=== PATIENT | male | born 1940 | race Caucasian/White ===

== ENCOUNTER 2020-09-27 11:17 | Emergency (ER) | payer MEDICARE, SELFPAY ==
--- NOTE | ~2020-09-27 | XR_ITS ---
XR finger 2nd LT min 2V 09/27/2020 11:43 INDICATION: Left second finger laceration with pain PROCEDURE: 4 views left second finger COMPARISON: No prior studies for comparison. FINDINGS: Fracture, dislocation or subluxation is not identified. 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 Mild soft tissue swelling. No foreign bodies are identified. IMPRESSION: 1: NO ACUTE BONE OR JOINT ABNORMALITY IDENTIFIED. Reviewed, dictated and finalized at location A.
[2020-09-27 11:26] VITALS: BP 153/75; PULSE 66; RESP 12; TEMP 36.7; O2SAT 99
--- NOTE | 2020-09-27 11:42 | ED.WOUNDLAC ---
HPI - Wound/Laceration General Chief Complaint: Wound/Laceration Stated Complaint: FINGER LACERATION Source: patient Mode of arrival: ambulatory Limitations: no limitations History of Present Illness HPI narrative: 80-year-old male presents to urgent care with months of laceration to his left index finger which occurred prior to arrival. Patient reports that he was using a saw when he sustained a smashing injury. Patient is unsure of his last tetanus shot. Patient denies decreased range of motion, fever, bodies, chills, nausea, vomiting or diarrhea. Onset (ago): minute(s) (30) Location: other (left index finger) Place: home Patient tetanus UTD: No Context: accidental Associated symptoms: none Related Data Allergies Allergy/AdvReac Type Severity Reaction Status Date / Time clindamycin Allergy Unknown Unknown Verified 09/27/20 11:24 Review of Systems Constitutional: Constitutional: Denies chills, Denies fatigue, Denies fever(s) and Denies weakness Cardiovascular: Cardiovascular: Denies chest pain, Denies rapid heart rate, Denies radiating jaw, neck or arm pain and Denies slow heart rate Respiratory: Respiratory: Denies chest congestion, Denies cough, Denies dyspnea and Denies wheezing Gastrointestinal: Gastrointestinal: Denies abdominal pain, Denies nausea and Denies vomiting Integumentary/Breasts: Comments: laceration to left index finger Neurologic: Denies vertigo, Denies dizziness and Denies syncope PMFSH Family History Family History (Updated 09/27/20 @ 11:44 by Sejal West APRN) Mother No problems noted. Other Diabetes mellitus Social History Social History Smoking status: Never smoker Alcohol intake: current Comments At time of signature, I agree with nursing past medical, surgical, social and family history. There is no relevant family history pertinent to the presenting complaint. Exam Const: General: no acute distress and alert Nutritional Appearance: well nourished Orientation/consciousness: patient oriented x3 Neck: Neck: normal visual inspection Resp: Effort & Inspection: normal respiratory effort, not labored, not tachypneic and no use of accessory muscles Auscultation: clear to auscultation bilaterally and no wheezes Cardio: Rate: regular rate, not bradycardic and not tachycardic Rhythm: regular rhythm Heart sounds: no murmurs Skin: General skin exam: normal color Other: 2.5 cm gaping laceration noted to middle phalanx of left index finger. There is scant amount of active bleeding. There is no purulent drainage, decreased range of motion or streaking erythema noted Neuro: General: patient oriented x3 and moves all extremities Speech: normal speech Extrem: General: clubbing, cyanosis or edema noted and pedal edema present Other: Full range of motion noted; 2.5 cm gaping laceration noted to left index finger Psych: Appearance: grossly normal Mental Status: mental status grossly normal Affect: normal affect Attitude: cooperative Thought content: Yes Normal thought content present Course Vital Signs Vital signs: Vital Signs Temperature 36.7 C 09/27/20 11:26 Pulse Rate 66 09/27/20 11:26 Respiratory Rate 12 09/27/20 11:26 Blood Pressure 153/75 H 09/27/20 11:26 Pulse Oximetry 99 09/27/20 11:26 Temperature 36.7 C 09/27/20 11:26 Pulse Rate 66 09/27/20 11:26 Respiratory Rate 12 09/27/20 11:26 Blood Pressure 153/75 H 09/27/20 11:26 Pulse Oximetry 99 09/27/20 11:26 Procedures Laceration Laceration 1: Date: 09/27/20 Time: 12:22 Site: other (left index finger -- middle phalax) Description: linear Local Anesthetic: lidocaine 1% Pre-repair: wound explored and irrigated ====== Skin Level ====== Skin layer closed with: nylon Size (cm): 5-0 Number of sutures: 9 Technique: simple, interrupted ====== Subcut
[2020-09-27] MEDS: LIDOCAINE HCL 1% LOCAL INJ 20 ML VIAL 3 ML INFILTRATE (12:00)
[2020-09-27] MEDS: TETANUS/DIPHTHERIA TOXOIDS ADSORB 0.5 ML VIAL (*BKC) IM (12:03)
== END 2020-09-27 12:45 | disposition home or self-care (01) ==
PROVIDERS: Emergency Provider Nurse Practitioner Family; PCP Family Medicine Adolescent Medicine
DX: S61.211A Laceration without foreign body of left index finger without damage to nail, initial encounter (principal); X58.XXXA Exposure to other specified factors, initial encounter; Z23 Encounter for immunization
CPT/HCPCS: 12001; 73140; 90471; 90714; 99203; G0463

== ENCOUNTER 2022-07-28 08:59 | Emergency (ER) | payer MEDICARE, SELFPAY ==
[2022-07-28 09:12] VITALS: BP 136/80; PULSE 79; RESP 16; TEMP 36.5; O2SAT 99
--- NOTE | 2022-07-28 09:28 | ED.GENADULT ---
HPI - General Adult General Chief complaint: Extremity Injury, Lower Stated complaint: INJURED R KNEE Time Seen by Provider: 07/28/22 09:25 Source: patient Mode of arrival: ambulatory Limitations: no limitations History of Present Illness HPI narrative: Patient is an 82-year-old male that presents after twisting the knee yesterday. Patient states he was walking and stepped in a hole with left foot twisting around and landing on his butt. Reports pain and swelling to right knee, but is able to ambulate unassisted. Related Data Home Medications Medication Instructions Recorded Confirmed No Home Medications 07/28/22 07/28/22 Allergies Allergy/AdvReac Type Severity Reaction Status Date / Time clindamycin Allergy Unknown Unknown Verified 07/28/22 09:35 Review of Systems Review of Systems: All systems reviewed & are unremarkable except as noted in HPI and below Constitutional: Constitutional: Denies body ache(s), Denies fever(s), Denies headache(s), Denies malaise and Denies weakness Eyes: Eyes: Denies loss of vision ENT: Denies otalgia, Denies headache(s), Denies nasal discharge, Denies sinus pain and Denies sore throat Cardiovascular: Cardiovascular: Denies chest pain, Denies irregular heart rhythm and Denies dyspnea Respiratory: Respiratory: Denies dyspnea Gastrointestinal: Gastrointestinal: Denies abdominal pain, Denies melena, Denies hematochezia, Denies diarrhea, Denies nausea and Denies vomiting Musculoskeletal: Musculoskeletal: Denies back pain, Denies myalgias, Reports arthralgias and Reports joint swelling Integumentary/Breasts: Skin/Breast: Denies pruritus and Denies rash Neurologic: Denies headache(s), Denies loss of vision and Denies weakness Psychiatric: Psychiatric: Reports no additional psychiatric complaints PMFSH Family History Family History (Updated 09/27/20 @ 11:44 by Sejal West APRN) Mother No problems noted. Other Diabetes mellitus Social History Social History Smoking status: Never smoker Alcohol intake: current Comments At time of signature, agree with nursing past medical, surgical, social and family history. There is no relevant family history pertinent to the presenting complaint. Exam Const: General: cooperative, healthy appearing, comfortable, no acute distress and well nourished Nutritional Appearance: well nourished Orientation/consciousness: patient oriented x3 Limitations: no limitations HENMT: Head: normal to inspection, normocephalic and atraumatic Ears: external ears normal Face/Nose/Sinus: Normal external nose present, normal facial exam and face symmetric Face and sinus: normal facial exam and face symmetric Mouth: Yes lip normal Eyes: General: appearance normal, both eyes and all related structures Alignment and Position: alignment normal and position normal Periorbital: periorbital findings normal Eyelids: eyelids normal Pupils: Equal, round and reactive pupils present Neck: Neck: normal visual inspection and full ROM Chest: Chest palpation & inspection: normal inspection of the chest Resp: Effort & Inspection: normal respiratory effort and able to speak in complete sentences Auscultation: clear to auscultation bilaterally Cardio: Rate: regular rate Rhythm: regular rhythm Heart sounds: S1 normal heart sound present and S2 normal heart sound present GI: Inspection: normal to inspection Skin: General skin exam: normal color and no rashes or lesions noted Neuro: General: patient oriented x3 and moves all extremities Cranial nerves: Yes Equal, round and reactive pupils present Speech: normal speech Gait exam (Neuro): Normal gait present Extrem: General: normal to inspection and full ROM Right lower extremity: knee Details: swelling Location: of the patella, normal ROM, knee ligament exam normal Details: anterior drawer test normal, posterior drawer test normal, valgus stre
== END 2022-07-28 09:45 | disposition home or self-care (01) ==
PROVIDERS: Emergency Provider Nurse Practitioner Family; PCP Family Medicine Adolescent Medicine
DX: S83.91XA Sprain of unspecified site of right knee, initial encounter (principal); X50.0XXA Overexertion from strenuous movement or load, initial encounter
CPT/HCPCS: 99212; G0463

== ENCOUNTER 2023-10-11 11:05 | Emergency (ER) | payer MEDICARE, SELFPAY ==
[2023-10-11 11:11] VITALS: BP 136/82; PULSE 67; RESP 16; TEMP 36.9; O2SAT 95
--- NOTE | 2023-10-11 11:31 | ED.EXTPRO ---
HPI - Extremity Problem General Chief complaint: Extremity Problem,Nontraumatic Stated complaint: L HAND SWELLING Time Seen by Provider: 10/11/23 11:25 Source: patient, RN notes reviewed and old records reviewed Mode of arrival: ambulatory Limitations: no limitations History of Present Illness HPI Narrative: 83 year old male presents to [facility] care with complaint of redness and swelling to the dorsal aspect of his left hand with some redness along MCP joint areas fingers 2-5. Patient reports that he felt himself get stung or bit by something along the 2nd left finger at MCP joint at 1100 today while at [employer] with small red tissue area noted. Patient is able to move hand and fingers on own power with inability to fully close into fist due to swelling.Patient is not having any difficulty with his breathing or with swallowing. MD Complaint: extremity swelling and other (redness) Onset (ago): hour(s) (1100 today) Location: left and other (dorsal hand) Severity scale (1-10): 5 Quality: aching and other (itching and soreness) Related Data Home Medications Medication Instructions Recorded Confirmed acetaminophen 500 mg capsule 500 mg PO Q6H PRN 08/30/23 Allergies Allergy/AdvReac Type Severity Reaction Status Date / Time clindamycin Allergy Unknown Unknown Verified 10/11/23 11:09 Review of Systems Review of Systems: CONSTITUTIONAL: Denies fever, chills, or sweats. EYES: Denies visual changes, redness, or discharge. ENT: Denies rhinorrhea, congestion, sore throat, or otalgia. CARDIOVASCULAR: Denies chest pain, palpitations, or edema. RESPIRATORY: Denies cough or dyspnea. GASTROINTESTINAL: Denies abdominal pain, nausea, vomiting, or diarrhea. GENITOURINARY: Denies dysuria or hematuria. SKIN positive for redness and swelling to the dorsal aspect of his left hand with some redness along MCP joint areas. MUSCULOSKELETAL: Denies back pain, joint pain, or myalgia. NEUROLOGIC: Denies headache, numbness, or weakness. PSYCHIATRIC: Denies anxiety or depression. All systems reviewed & are unremarkable except as noted in HPI and below PMFSH Past Medical History Medical History Sprain of left wrist Family History Family History Mother No problems noted. Other Diabetes mellitus Social History Social History Smoking status: Never smoker Alcohol intake: current Comments At time of signature, agree with nursing past medical, surgical, social and family history. There is no relevant family history pertinent to the presenting complaint Exam Narrative: GENERAL: Well-appearing, well-nourished, and in no acute distress. HEAD: Normocephalic, atraumatic. EYES: PERRLA and EOMI. ENT: Nares clear, no rhinorrhea or epistaxis. Mucous membranes moist. NECK: Supple. no lymphadenopathy CHEST: Clear to auscultation. No respiratory distress. SAO2 95% on room air HEART: Regular rate and rhythm. No murmur heard. Normal peripheral pulses. ABDOMEN: Soft, nontender, nondistended, normal active bowel sounds. EXTREMITIES: Normal range of motion. No edema. SKIN: Warm, dry, no rash. positive for swelling to the dorsal aspect of left hand with redness along MCP joint areas 2-5with red spot on prox index finger where patient points as being a sting or bite NEURO: No focal deficits. Alert and oriented x3. Course Course Emergency Course: Patient is aware of diagnosis, understands and agrees to treatment plan.? Anticipatory guidance given.? Patient agrees to follow-up as directed and is aware of reasons to seek care at the emergency department. Portions of this record may have been created with voice recognition software Level of Care: Express Care Visit Vital Signs Vital signs: Vital Signs Temperature 36.9 C 10/11/23 11:11 Pulse Rate 67 10/11/23 11:11 Re
[2023-10-11] MEDS: methylPREDNISolone ACETATE 80 MG/ML VIAL IM (11:46)
== END 2023-10-11 12:08 | disposition home or self-care (01) ==
PROVIDERS: Emergency Provider Registered Nurse; PCP Family Medicine Adolescent Medicine
DX: S60.562A Insect bite (nonvenomous) of left hand, initial encounter (principal); W57.XXXA Bitten or stung by nonvenomous insect and other nonvenomous arthropods, initial encounter
CPT/HCPCS: 96372; 99213; G0463; J1010

== ENCOUNTER 2024-12-01 14:54 | Emergency (ER) | payer MEDICARE, SELFPAY ==
[2024-12-01 15:11] VITALS: BP 152/86; PULSE 60; RESP 16; TEMP 37.1; O2SAT 99
--- NOTE | 2024-12-01 15:28 | ED_ITS ---
HPI - General Adult General Chief complaint: Extremity Injury, Upper Stated complaint: L ARM INJURY Time Seen by Provider: 12/01/24 15:28 Source: patient, RN notes reviewed and old records reviewed Mode of arrival: ambulatory Limitations: no limitations History of Present Illness HPI narrative: 84-year-old male presents to the [facility] with healing skin tears to the left forearm and elbow. States that he fell on Tuesday, 5 days ago. Has been applying aloe. Related Data Home Medications ?Medication ?Instructions ?Recorded ?Confirmed ?Last Taken ?Type acetaminophen 500 mg capsule 500 mg PO Q6H 08/30/23 12/01/24 Unknown History Allergies Allergy/AdvReac Type Severity Reaction Status Date / Time clindamycin Allergy Unknown Unknown Verified 12/01/24 14:58 Review of Systems Review of Systems: All systems reviewed & are unremarkable except as noted in HPI and below Constitutional: Constitutional: Reports no additional constitutional complaints ENT: Reports system reviewed and no additional complaints, except as documented Musculoskeletal: Musculoskeletal: Reports no additional musculoskeletal complaints Integumentary/Breasts: Skin/Breast: Reports as per HPI PMFSH Past Medical History Medical History Sprain of left wrist Family History Family History Mother No problems noted. Other Diabetes mellitus Social History Social History Smoking status: Never smoker Alcohol intake: current Comments At the time of my signature, I reviewed and agree with the nursing past medical, surgical, social, and family history. There is no relevant family history pertinent to the patient complaint. Exam Const: General: cooperative, healthy appearing, comfortable, no acute distress, well developed, alert and well nourished Nutritional Appearance: well nourished Orientation/consciousness: patient oriented x3 Limitations: no limitations HENMT: Head: normal to inspection Eyes: General: appearance normal, both eyes and all related structures Alignment and Position: alignment normal Neck: Neck: normal visual inspection, full ROM, no lymphadenopathy and no meningeal signs Chest: Chest palpation & inspection: normal inspection of the chest Resp: Effort & Inspection: normal respiratory effort and able to speak in complete sentences Cardio: Rate: regular rate Skin: General skin exam: normal color and no rashes or lesions noted Other: Two skin tears 1 to the lateral elbow for by 1.5 cm scabbed area, 3 x 5 cm reddened. Proximal forearm to by a 4 cm scabbed area, 3 x 5 reddened area. Not raised, no increased warmth, no drainage. Neuro: General: patient oriented x3, gait normal, moves all extremities and no meningeal signs Cognition (Neuro): normal cognition Speech: normal speech Gait exam (Neuro): Normal gait present Extrem: General: normal to inspection, full ROM, capillary refill normal and normal gait Psych: Appearance: grossly normal and well kempt Mental Status: mental status grossly normal Speech and movement: Normal speech and movement present and Clear speech present Affect: normal affect Attitude: cooperative Course Course Level of Care: Express Care Visit Vital Signs Vital signs: Vital Signs Temperature 98.7 F 12/01/24 15:11 Pulse Rate 60 12/01/24 15:11 Respiratory Rate 16 12/01/24 15:11 Blood Pressure 152/86 H 12/01/24 15:11 Pulse Oximetry 99 12/01/24 15:11 Temperature 98.7 F 12/01/24 15:11 Pulse Rate 60 12/01/24 15:11 Respiratory Rate 16 12/01/24 15:11 Blood Pressure 152/86 H 12/01/24 15:11 Pulse Oximetry 99 12/01/24 15:11 Reviewed Medical Decision Making MDM Narrative Medical decision making narrative: Patient sitting comfortably in exam room. Nontoxic, vitals stable. Patient in no acute distress Patient presents with concerns of infection to skin tears after he fell a week ago. Mild redness noted surrounding the scabbed areas. No drainage, no fluctuance. No tenderness to the bone area. Patient has no concerns for fracture. Discussed [id number] treatment, will prescribe antibiotic Patient appropriate for outpatient treatment with close follow-up Discharge instructions reviewed with patient, as well as provided in writing per nursing staff. The instructions also include specific and strict return/GO TO THE ER as well as f/u information. All questions have been answered, and the patient deny any further questions with discharge and discharge plan. Some parts of this dictation were generated by voice recognition software and may contain typographical and/or grammatical inaccuracies. Differential Diagnosis Differential Diagnosis: Abscess, wound, infection, cellulitis, skin tear Medical Records Medical records reviewed: Yes I reviewed the external patient's medical records. Vital Signs Vital Signs: Vital Signs Temperature 98.7 F 12/01/24 15:11 Pulse Rate 60 12/01/24 15:11 Respiratory Rate 16 12/01/24 15:11 Blood Pressure 152/86 H 12/01/24 15:11 Pulse Oximetry 99 12/01/24 15:11 Temperature 98.7 F 12/01/24 15:11 Pulse Rate 60 12/01/24 15:11 Respiratory Rate 16 12/01/24 15:11 Blood Pressure 152/86 H 12/01/24 15:11 Pulse Oximetry 99 12/01/24 15:11 Reviewed Lab Data Lab results reviewed: Yes I reviewed the patient's lab results. Labs: Reviewed Critical Care Time Critical Care Time Critical Care Time: No Discharge Plan Discharge Clinical Impression: Multiple skin tears Patient Disposition: Home Condition: Stable Instructions: Antibiotic Form, Skin Tear (ED) Additional Instructions: Today your blood pressure was 152/86. It is recommended you follow-up with your primary care provider within 2 weeks to have this rechecked. For care of your skin tears, wash with warm soapy water twice daily, pat dry. Apply scant amount of bacitracin Take oral antibiotic to reduce the chances of infection Follow-up with primary care provider For new or worsening symptoms go directly to the emergency room Patient Language: Azeri Prescriptions: New cephalexin 500 mg capsule 500 mg PO Q8H 7 Days Qty: 21 0RF No Action famotidine [Pepcid] 20 mg tablet 20 mg PO DAILY Qty: 10 0RF acetaminophen 500 mg capsule 500 mg PO Q6H meloxicam 15 mg tablet 15 mg PO DAILY Qty: 90 2RF Follow-up/Referrals: Gerardo Gaitan MD [Primary Care Provider] - 1 Week ([facility] follow- up, blood pressure check) Time of Disposition: 15:38
== END 2024-12-01 15:47 | disposition home or self-care (01) ==
PROVIDERS: Emergency Provider Nurse Practitioner; PCP Family Medicine Adolescent Medicine
DX: S51.812A Laceration without foreign body of left forearm, initial encounter (principal); S51.012A Laceration without foreign body of left elbow, initial encounter; W19.XXXA Unspecified fall, initial encounter
CPT/HCPCS: 99213; G0463

== ENCOUNTER 2025-03-08 13:15 | Emergency (ER) | payer MEDICARE, SELFPAY ==
[2025-03-08 13:25] VITALS: BP 150/90; PULSE 59; RESP 16; TEMP 36.6; O2SAT 100
--- NOTE | 2025-03-08 13:32 | ED.EYEPROB ---
HPI - Eye Problem General Chief complaint: Eye Problems Stated complaint: stung by wasp in eye Time Seen by Provider: 03/08/25 13:32 Source: patient, RN notes reviewed and old records reviewed Mode of arrival: ambulatory Limitations: no limitations History of Present Illness HPI Narrative: 85 year old male who presents to [facility] care with complaints of being stung by wasp to the left side of his head yesterday with redness and swelling to the left top of his head, to the left forehead, left eye and cheek since that time with states some visual blurring. Patient reports no acute itching has taken some Tylenol for his discomfort.Visual acuity 20/200 without glasses. chief complaint: other (wasp sting) Onset (ago): day(s) (occurred yesterday at 1130) Onset description: gradual Location: left eye Place: home Severity: moderate Treatments Prior to Arrival: other (Tylenol) Related Data Home Medications ?Medication ?Instructions ?Recorded ?Confirmed ?Last Taken ?Type acetaminophen 500 mg capsule 500 mg PO Q6H 08/30/23 12/10/24 Unknown History Allergies Allergy/AdvReac Type Severity Reaction Status Date / Time clindamycin Allergy Unknown Unknown Verified 03/08/25 13:32 cephalexin AdvReac Intermediate Redness of Verified 03/08/25 13:32 Skin Review of Systems Review of Systems: CONSTITUTIONAL: Denies fever, chills, or sweats. EYES: reports left eye vision more blurry, reports redness and swelling around left eye, left top of head, left forehead and some to left cheek with no discharge, since being stung by wasp yesterday with gradual increase to left eye ENT: Denies rhinorrhea, congestion, sore throat, or otalgia CARDIOVASCULAR: Denies chest pain, palpitations, or edema. RESPIRATORY: Denies cough or dyspnea. GASTROINTESTINAL: Denies abdominal pain, nausea, vomiting, or diarrhea.reports no difficulty with swallowing GENITOURINARY: Denies dysuria or hematuria. SKIN: Positive for redness swelling to left scalp region, left forehead, left eye region and left cheek denies itching MUSCULOSKELETAL: Denies back pain, joint pain, or myalgia. NEUROLOGIC: Denies headache, numbness, or weakness. PSYCHIATRIC: Denies anxiety or depression. All systems reviewed & are unremarkable except as noted in HPI and below PMFSH Past Medical History Medical History Kidney stones GI bleed Surgical History Surgical History Hx of inguinal hernia repair History of tonsillectomy Family History Family History Mother No problems noted. Other Diabetes mellitus Social History Social History Smoking status: Never smoker Alcohol intake: current Comments At time of signature, agree with nursing past medical, surgical, social and family history. There is no relevant family history pertinent to the presenting complaint Exam Narrative: GENERAL: Well-appearing, well-nourished, and in no acute distress. HEAD: Normocephalic, atraumatic.redness and swelling to left scalp and to left forehead from wasp sting EYES: PERRLA and EOMI. redness of upper and lower eyelid left eye and around eye and into left cheek is able to open eye states vision a little blurry left eye no redness of sclera or conjunctiva, no drainage ENT: Nares clear, no rhinorrhea or epistaxis. Mucous membranes moist. NECK: Supple. no lymphadenopathy CHEST: Clear to auscultation. No respiratory distress. no dyspnea noted SAO2 100% on room air HEART: Regular rate and rhythm. No murmur heard. Normal peripheral pulses. ABDOMEN: Soft, nontender, nondistended, normal active bowel sounds. EXTREMITIES: Normal range of motion. No edema. SKIN: Warm, dry, no rash. NEURO: No focal deficits. Alert and oriented x3.needs frequent explanations Course Course Emergency Course: Patient is aware of diagnosis, understands and agrees to treatment plan.? Anticipatory guidance given.? Patient agrees to follow-up as directed and is aware of reasons to seek care at the emergency department. Portions of this record may have been created with voice recognition software Level of Care: Express Care Visit Vital Signs Vital signs: Vital Signs Temperature 36.6 C 03/08/25 13:25 Pulse Rate 59 L 03/08/25 13:25 Respiratory Rate 16 03/08/25 13:25 Blood Pressure 150/90 H 03/08/25 13:25 Pulse Oximetry 100 03/08/25 13:25 Temperature 36.6 C 03/08/25 13:25 Pulse Rate 59 L 03/08/25 13:25 Respiratory Rate 16 03/08/25 13:25 Blood Pressure 150/90 H 03/08/25 13:25 Pulse Oximetry 100 03/08/25 13:25 Reviewed MDM - Eye Problem MDM Narrative Medical decision making narrative: Patient received Depo Medrol 80 mg IM while in Express care with no reaction noted Differential Diagnosis Differential diagnosis: Likely other (swelling with redness to left scalp forehead left eye and cheek. wasp sting, allergic reaction) Medical Records Attestation: I reviewed the patient's medical records. Critical Care Time Critical Care Time Critical Care Time: No Discharge Plan Discharge Clinical Impression: Allergic reaction to wasp sting Patient Disposition: Home Condition: Stable Instructions: General Allergic Reaction (ED) Additional Instructions: May use hydrocortisone ointment skin around eye and forehead watch for any increasing--redness, swelling, drainage Tylenol for any fever or pain Zyrtec daily for 10 days Pepcid 20 mg po daily follow up with PCP in 7-10 days for a wound check recheck if develop fever, chills, increasing symptom Go to the ER if your symptoms become worse of if ANY new symptoms develop prednisone taper take as prescribed with food If your symptoms persist, change or worsen significantly before you can contact your personal physician then please, without delay, go to the emergency department for further evaluation. Follow-up with PCP in 7-10 days or sooner if needed Follow up with PCP soon in regards to your blood pressure which is elevated above threshold for referral. Blood pressure above 120/80 may indicate pre-hypertension.150/90 Patient Language: Frisian Prescriptions: New prednisone 10 mg tablet 10 mg PO DIRECTED Qty: 21 0RF Rx Instructions: see taper instructions 6 tabs day 1, 5 tabs day 2, 4 tabs day 3, 3 tabs day 4, 2 tabs day 5, 1 tab day 6 start this medication tomorrow on 03/09/2025 famotidine [Pepcid] 20 mg tablet 20 mg PO DAILY Qty: 10 0RF cetirizine [Zyrtec] 10 mg tablet 10 mg PO DAILY Qty: 10 0RF No Action famotidine [Pepcid] 20 mg tablet 20 mg PO DAILY Qty: 10 0RF acetaminophen 500 mg capsule 500 mg PO Q6H meloxicam 15 mg tablet 15 mg PO DAILY Qty: 90 2RF Follow-up/Referrals: Gerardo Gaitan MD [Primary Care Provider, [facility]] Time of Disposition: 14:15 Quality Laurie Coma Scale Eyes: Open Verbal: Oriented and Alert Motor: Follows Commands Laurie Coma Total Score: 15
[2025-03-08] MEDS: methylPREDNISolone ACETATE 80 MG/ML VIAL IM (13:44)
== END 2025-03-08 14:21 | disposition home or self-care (01) ==
PROVIDERS: Emergency Provider Registered Nurse; PCP Family Medicine Adolescent Medicine
DX: T63.461A Toxic effect of venom of wasps, accidental (unintentional), initial encounter (principal)
CPT/HCPCS: 96372; 99213; G0463; J1010